=== PATIENT | female | born 1965 | race Caucasian/White ===

== ENCOUNTER 2023-12-20 14:38 | Outpatient (AMB) | payer BC, SELFPAY ==
--- NOTE | 2023-12-20 14:42 | AM.OFFWIN_ITS ---
Intake Vital Signs 12/20/23 14:51 Height 5 ft 7 in Weight 181 lb BMI 28.3 BP 118/72 Blood Pressure Location Lt brachial Position Sitting Pulse 76 Pulse Source Pulse Oximeter Temp 97.9 F Temp Source Oral Pulse Oximetry (%) 97 Oxygen Delivery Method Room Air Intake Visit Reasons: [facility]UR[facility]CH[facility]Y [facility] Sore throat, congestion, ear pain Intake Note: pt is here for ear pain and congestion.patient stated she was seen last week on and was tested for strep covid flu and it all came back negative Patient Tobacco Use Status: Never used Tobacco Allergies No Known Allergies Allergy (Verified 12/20/23 14:43) Do you need a note to return to daycare/school/sports/work: No HPI HPI Comments History of Present Illness Details Patient is a 58-year-old female complaining of 10 days of what started as a sore throat and then involved into a fever of 101 degrees F that resolved with Tylenol, then the patient states she had head congestion and sinus pain. Eventually a few days later woke up with hives all over her body which went away the next day and now she said she is left with residual ear pain, both ears. She still has a small dry cough. She states 7 days ago she did go to an urgent care where they tested her for strep, flu, RSV and COVID and everything came back negative. She does not have any sick contacts. She states she works for the [employer]. She denies hx of tonsil stones. [facility] Social History Patient Tobacco Use Status: Never used Tobacco Review of Systems Const All systems reviewed & are unremarkable except as noted in HPI and below Physical Exam Vital Signs: Last Vital Signs Temp 97.9 F 12/20/23 14:51 Pulse 76 12/20/23 14:51 BP 118/72 12/20/23 14:51 Pulse Ox 97 12/20/23 14:51 Oxygen Delivery Method Room Air 12/20/23 14:51 BMI result Body Mass Index 28.3 Const General: cooperative, healthy appearing, comfortable and no acute distress Orientation/consciousness: patient oriented x3 Limitations: no limitations HEENT Head: Yes normal to inspection Ears: external ears normal, TM normal on the left and TM abnormal dull, wth effusion, erythematous and with loss of landmarks General nose exam: Normal external nose present, Normal nares present and No nasal discharge present Face and sinus: Yes normal facial exam and Yes sinuses nontender Mouth: Normal oral and palatal mucosa present and moist mucous membranes Throat: Yes tonsils normal, Yes uvula midline and Yes posterior oropharynx abnormal (exudates present) Eyes General: appearance normal, both eyes and all related structures Neck Neck: Yes normal visual inspection Resp Effort & Inspection: normal respiratory effort, able to speak in complete sentences, no respiratory distress, not tachypneic, no tripod positioning and no use of accessory muscles Auscultation: clear to auscultation bilaterally Cardio Rate: regular rate Rhythm: regular rhythm Heart sounds: normal S1 and S2 Skin General skin exam: no rashes or lesions noted Neuro General: patient oriented x3 Extrem General: Yes normal to inspection and Yes no clubbing, cyanosis or edema Assessment & Plan Assessment & Plan (1) Strep pharyngitis: Code(s): J02.0 - Streptococcal pharyngitis Plan: Based on the exudates in her throat, as well as Centor criteria of 3, I will treat for strep, this will also treat her right ear infection. (2) Otitis media: Code(s): H66.90 - Otitis media, unspecified, unspecified ear Qualifiers: Otitis media type: unspecified Laterality: right Qualified Code(s): H66.91 - Otitis media, unspecified, right ear Plan: Will be covered with above antibiotics Plan see above Medications: New amoxicillin 500 mg PO Q12H 20 caps 0RF Coding Level of Care Code Est Pt Level 4 (70231) Diagnoses Strep pharyngitis J02.0 Right otitis media, unspecified otitis media type H66.91 Otitis media type: unspecified Laterality: right
[2023-12-20 14:51] VITALS: BP 118/72; PULSE 76; TEMP 36.6; O2SAT 97; BMI 28.3
== END 2023-12-20 16:03 | disposition home or self-care (01) ==
PROVIDERS: PCP Student in an Organized Health Care Education/Training Program; Visit Provider Physician Assistant
DX: J02.0 Streptococcal pharyngitis (principal); H66.91 Otitis media, unspecified, right ear; J02.9 Acute pharyngitis, unspecified
CPT/HCPCS: 99214